=== PATIENT | male | born 1945 | race Caucasian/White ===

== ENCOUNTER 2021-11-01 20:17 | Inpatient (IN) | payer OTHER ==
[~2021-11-01] VITALS: Ht 180.3 cm; Wt 72.6 kg
[~2021-11-01 20:17] MED LIST: AMBIEN 10 MG TA10 MG PO; ATIVAN0.5 MG PO; CLONIDINE0.1 PO; COQ-10100 MG PO; COUMADIN6 MG; HYDROCODON-ACE1 EAC5 PO; IMITREX 50 MG T50 MG PO; MAGNESIUM OXID200 MG PO; MAGNESIUM400 MG PO; NORVASC 5 MG TAB5 MG PO; NORVASC5 MG PO; OXYCONTIN20 M1 PO; PRILOSEC 20 MG20 MG PO; PRILOSEC40 MG PO; PROBIOTIC1 EAC1 PO; SIMVASTATIN40 MG PO; THERA-M CAPLET1 EACH PO; TRIAMTERENE-HC1 EAC1 PO; ULTRAM ER200 MG PO; VITAMIN D31000 UNI2 PO; ZYRTEC10 M2 PO
[2021-11-01 20:23] VITALS: BP 111/53
[2021-11-01 21:13] LABS: BASOPHILS 0.2 % (0.0-2.0); HEMATOCRIT 38.6 % (42.0-52.0); LYMPHOCYTES 4.5 % (24.0-44.0); MCH 29.3 pg (26.0-34.0); MCHC 33.6 g/dL (28.0-37.0); MCV 87.2 fL (80.0-100.0); PLATELET COUNT 169 thou/uL (150-400); POLYS 85.3 % (36.0-66.0); RBC 4.43 mil/uL (4.50-6.00); RDW 13.5 % (10.5-14.5); WBC 12.9 thou/uL (4.0-11.0)
[2021-11-01 21:19] LABS: BE(vivo) 4.9 mmol/L (-2 to +3); HCO3 28.2 mmol/L (22.0-26.0); PCO2 37.2 mmHg (35.0-45.0); PO2 60.3 mmHg (80.0-100.0); pH 7.498 (7.360-7.450); sO2 93.1 % (92.0-98.0)
[2021-11-01 21:26] LABS: CALCIUM 8.4 mg/dL (8.5-10.1); CREATININE 1.2 mg/dL (0.7-1.3); POTASSIUM 3.4 mmol/L (3.5-5.1)
[2021-11-01 21:36] LABS: INR 1.02; PROTIME 11.1 Seconds (10.5-12.1)
[2021-11-01 21:37] LABS: ALBUMIN 3.1 g/dL (3.4-5.0); TOTAL BILIRUBIN 0.7 mg/dL (0.2-1.0); TOTAL PROTEIN 6.9 g/dL (6.4-8.2)
[2021-11-01 22:25] LABS: URINE BILIRUBIN NEGATIVE (Negative); URINE BLOOD TRACE (Negative); URINE CLARITY CLEAR; URINE COLOR YELLOW; URINE GLUCOSE-RANDOM* NEGATIVE (Negative); URINE KETONES TRACE (Negative); URINE LEUKOCYTES-REFLEX NEGATIVE (Negative); URINE NITRITE-REFLEX NEGATIVE (Negative); URINE PROTEIN (DIPSTICK) 1+ (Negative); URINE SPECIFIC GRAVITY >= 1.030 (1.005-1.035)
[2021-11-01 22:35] LABS: SQUAMOUS 0-3 Few /LPF (0-3)
[2021-11-01 22:36] LABS: BACTERIA-REFLEX None Seen /HPF (None Seen); CASTS None Seen /LPF (None Seen); CRYSTALS None Seen /LPF (None Seen); MUCUS 4-6 Moderate strn/LPF (None Seen); URINE RBC None Seen /HPF (NONE SEEN); URINE WBC-REFLEX 0-5 Rare /HPF (0-5)
[2021-11-01] MEDS ORDERED: MIRALAX119 GM PO (23:40)
[2021-11-01] MEDS ORDERED: MULTI VITAMIN1 EACH PO (23:41)
[2021-11-01] MEDS ORDERED: PROTONIX40 M2 PO (23:42)
[2021-11-01] MEDS ORDERED: ONDANSETRON HCL4 M2 PO (23:42)
[2021-11-01] MEDS ORDERED: CHILDREN'S ASPI81 M1 PO (23:42)
[2021-11-01] MEDS ORDERED: MOVANTIK25 MG PO (23:43)
[2021-11-01] MEDS ORDERED: CARAFATE 1 GM TA1 G1 PO (23:43)
[2021-11-01] MEDS ORDERED: NORCO 10-325 T1 EACH PO (23:44)
[2021-11-02 06:08] LABS: HEMATOCRIT 37.4 % (42.0-52.0); HEMOGLOBIN 12.2 gm/dL (14.0-18.0); MCH 29.2 pg (26.0-34.0); MCHC 32.8 g/dL (28.0-37.0); MCV 89.1 fL (80.0-100.0); RBC 4.19 mil/uL (4.50-6.00); RDW 13.6 % (10.5-14.5); WBC 11.1 thou/uL (4.0-11.0)
[2021-11-02 06:32] LABS: ALBUMIN 2.6 g/dL (3.4-5.0); CALCIUM 8.2 mg/dL (8.5-10.1); CREATININE 1.2 mg/dL (0.7-1.3); POTASSIUM 3.6 mmol/L (3.5-5.1); TOTAL BILIRUBIN 0.7 mg/dL (0.2-1.0); TOTAL PROTEIN 6.1 g/dL (6.4-8.2)
[2021-11-02 10:22] VITALS: BP 124/65
--- NOTE | 2021-11-02 18:22 | NUR ---
patient has medications in pharmacy
[2021-11-02 18:25] VITALS: BP 113/48
[2021-11-02 20:30] VITALS: BP 123/52
[2021-11-03 06:33] LABS: BASOPHILS 0.2 % (0.0-2.0)
[2021-11-03 06:34] LABS: EOSINOPHILS 0.2 % (0.0-3.0); HEMATOCRIT 35.5 % (42.0-52.0); LYMPHOCYTES 13.5 % (24.0-44.0); MCH 29.7 pg (26.0-34.0); MCHC 33.8 g/dL (28.0-37.0); MONOCYTES 7.3 % (1.0-8.0); PLATELET COUNT 155 thou/uL (150-400); POLYS 78.8 % (36.0-66.0); RBC 4.04 mil/uL (4.50-6.00); RDW 13.7 % (10.5-14.5); WBC 10.2 thou/uL (4.0-11.0)
[2021-11-03 06:56] LABS: ALBUMIN 2.4 g/dL (3.4-5.0); CALCIUM 8.3 mg/dL (8.5-10.1); CREATININE 0.9 mg/dL (0.7-1.3); PHOSPHORUS 2.3 mg/dL (2.6-4.7); POTASSIUM 3.1 mmol/L (3.5-5.1); TOTAL BILIRUBIN 0.6 mg/dL (0.2-1.0)
[2021-11-03 07:30] VITALS: BP 152/101
--- NOTE | 2021-11-03 07:38 | EKG ---
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
[2021-11-03 20:05] VITALS: BP 142/69
[2021-11-03 23:45] VITALS: BP 137/66
[2021-11-04 01:41] VITALS: BP 137/66
[2021-11-04 04:30] VITALS: BP 159/82
[2021-11-04 07:05] LABS: ALBUMIN 2.5 g/dL (3.4-5.0); CALCIUM 8.7 mg/dL (8.5-10.1); CREATININE 0.9 mg/dL (0.7-1.3); DIRECT BILIRUBIN 0.1 mg/dL (<0.1-0.2); PHOSPHORUS 3.1 mg/dL (2.5-4.9); POTASSIUM 3.3 mmol/L (3.5-5.1); TOTAL BILIRUBIN 0.5 mg/dL (0.2-1.0); TOTAL PROTEIN 6.5 g/dL (6.4-8.2)
[2021-11-04 08:00] VITALS: BP 155/82
--- NOTE | 2021-11-04 08:01 | HC ---
[facility] [address] CONSULTATION Name: MAGNOLIA SAUCEDO Room #: 354-P ADM IN M.R.#: [id number] Admission: 11/01/21 Attend Phys: Lonnie Ontiveros MD Discharge: Date of : 49 Report #: [id number] THIS REPORT FOR: cc: Juan Fuchs MD, Christopher B. MD Barry, Joseph W. MD ~ DATE OF SERVICE: 11/03/2021 INFECTIOUS DISEASE CONSULTATION ATTENDING PHYSICIAN: Dr. Ontiveros. REASON FOR EVALUATION: Febrile illness, confirmed to have COVID-19 infection, complicated by pneumonitis, respiratory failure. HISTORY OF PRESENT ILLNESS: Chart reviewed. The patient examined. This is a 75-year-old with history of hypertension, who had developed some upper respiratory tract signs and symptoms, cough, chest congestion, weakness for the last 3-4 days prior to his presentation on the 11/01. The cough is generally nonproductive. He did fall. Seemingly, had started improving; however, this worsened over the course of the hours before his presentation. He was confirmed to have a positive COVID-19 test by PCR. Influenza was negative. Initial chest x-ray showed no acute process. ABGs showed pH 7.498, pCO2 of 37.2, and pO2 of 60.3. Procalcitonin was elevated at 5.39. Urinalysis, 0-5 white cells. Liver functions were otherwise unremarkable. D-dimer 1.08. CTA chest ____ PE, showed multifocal pulmonary opacities. Blood cultures collected at the time of admission are sterile thus far. CT of the abdomen and pelvis, no acute process, focus of pyogenic changes. ALLERGIES: None known. CURRENT MEDICATIONS: Include aspirin, ____, atorvastatin, enoxaparin, hydrocodone as needed, ____, multivitamin, cholecalciferol, lactic acid, pantoprazole, Zosyn, ____, ondansetron. PAST MEDICAL HISTORY: Hypertension, hyperlipidemia, reflux with Hodges's esophagus, multiple orthopedic procedures, high cholesterol. SOCIAL HISTORY: Nonsmoker, no ethanol, no illicit drug use. FAMILY HISTORY: Noncontributory. REVIEW OF SYSTEMS: Otherwise, unremarkable. PHYSICAL EXAMINATION: GENERAL: He is alert, cooperative. He is lucid, in [id number] distress. [address] [place] [address] CONSULTATION Name: MAGNOLIA SAUCEDO Room #: 354-P [facility] IN M.R.#: [id number] Admission: 11/01/21 Attend Phys: Lonnie Ontiveros MD Discharge: Date of : 49 Report #: [id number] VITAL SIGNS: Temperature 98, pulse 57, respirations 19, blood pressure 152/101. SKIN: Warm, dry. No rashes. HEENT: Normocephalic. Extraocular muscles intact. Nasal cannula in place. NECK: Supple. LUNGS: Few scattered coarse breath sounds. HEART: Regular, borderline bradycardic. I do not appreciate a murmur. ABDOMEN: Mildly distended, somewhat firm, nontender. EXTREMITIES: No cyanosis. GENITOURINARY AND RECTAL: Deferred. LABORATORY DATA: Blood cultures sterile thus far. CT chest, as noted above. Electrolytes: Sodium 142, potassium 3.1, chloride 108, bicarbonate is 24, anion gap of 10, BUN and creatinine 15 and 0.9. LFTs unremarkable. Albumin of 2.4, total protein 6.0. CBC: White count of 10.2, H and H 12.0 and 35.5, and platelets of 155. D-dimer of 1.05. TSH of 0.8. CTA of the abdomen, noted above. Urinalysis, 0-5 white cells. ASSESSMENT AND PLAN: COVID-19 infection, complicated by pneumonitis, respiratory failure. We will continue empiric therapy. Evaluation for focal area of pyogenic infection is not really apparent, although cannot exclude bacterial pneumonitis. In addition, we will use directed therapy against coronavirus. We will add remdesivir, baricitinib and corticosteroids to his regimen. He remains somewhat tenuous. Continue to monitor expectantly. Oxygen therapy as required. <ELECTRONICALLY SIGNED> By: Pratik Smith MD 11/04/21 0801 [id number] Pratik Smith MD /nt
[2021-11-04 11:17] VITALS: BP 151/71
[2021-11-04 14:42] VITALS: BP 90/68
--- NOTE | 2021-11-04 15:58 | NUR ---
INITIAL ASSESSMENT: Case opened due to LOS. Reviewed chart and spoke with nursing and attending physician. Pt was admitted from home due to fever. Pt had positive COVID test in the ER. Pt has not received a COVID vaccination. Pt placed in Enhanced Isolation. Pt is afebrile and on 1L of O2. Pt is on IV abx, IV steroids and Remdesivir. PT/OT ordered. Per chart, pt is alert/orientated x 4. Pt lives at home with his . There are 2 steps to enter and no steps inside. Prior to admission, pt was independent with ADLs. Pt has a roller walker. Pt's PCP is Dr. Rodri Fuchs. Plan is for pt to discharge home when medically stable. SW is following to assist as needed with discharge planning.
--- NOTE | 2021-11-04 18:08 | NUR ---
assumed care of pt on arrival to unit. pt alert and oriented, pleasant, no distress. weaned to room air. up w/ stnd by assist - able to shower self. otherwise using urinal. ivf infusing per order. sinus on telemetry without events. calls out appropriately. vitals stable.
[2021-11-04 19:29] VITALS: BP 148/77
[2021-11-05 03:12] VITALS: BP 131/75
[2021-11-05 03:20] LABS: HEMATOCRIT 36.4 % (42.0-52.0); HEMOGLOBIN 12.4 gm/dL (14.0-18.0); MCH 29.8 pg (26.0-34.0); MCHC 34.2 g/dL (28.0-37.0); MCV 87.1 fL (80.0-100.0); RBC 4.18 mil/uL (4.50-6.00); RDW 13.6 % (10.5-14.5); WBC 7.8 thou/uL (4.0-11.0)
[2021-11-05 05:11] LABS: ALBUMIN 2.6 g/dL (3.4-5.0); CALCIUM 8.5 mg/dL (8.5-10.1); DIRECT BILIRUBIN 0.2 mg/dL (<0.1-0.2); PHOSPHORUS 3.1 mg/dL (2.5-4.9); POTASSIUM 3.4 mmol/L (3.5-5.1); TOTAL BILIRUBIN 0.5 mg/dL (0.2-1.0); TOTAL PROTEIN 5.7 g/dL (6.4-8.2)
--- NOTE | 2021-11-05 06:53 | NUR ---
PT MAKING PROGRESS TOWARDS GOALS. ON ROOM AIR THROUGHOUT THE NIGHT. LUNG CTA WITH FAINT CRACKLES NOTED OVER LLL. CRACKLES ABSENT ON SUBSEQUENT ASSESSMENTS. NO FEVERS NOTED.
[2021-11-05 07:39] VITALS: BP 154/89
[2021-11-05 11:39] VITALS: BP 122/81
--- NOTE | 2021-11-05 12:28 | NUR ---
VIKA reviewed chart and spoke with nursing and attending physician. Pt remains in Enhanced Isolation due to COVID. Pt is afebrile and on room air. Pt is on IV abx and IV steroids. Pt is completing course of Remdesivir. DIscharge home is anticipated in 1-2 days. VIKA spoke with pt via phone. Introduced role of SW. Prior to admission, pt was living at home with his . Pt is normally independent with ADLs and states that he has noticed muscle weakness in his legs, which has caused him to start using a walker. Pt states he is interested in a shower chair. Pt's PCP is Dr. Rodri Fuchs. No hx of HH or post-acute placement. 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 Pt states he prefers HH v. post-acute placement. SW provided HH options. Pt requested SW contact his to discuss. VIKA spoke with pt's , Eric, via phone. Introduced role of VIKA. 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 Pt's is interested in HH and possibly private duty care. Pt's requests one agency that would be able to provide both. SW discussed referral to [facility]. Pt's is agreeable. SW confirmed pt's home address. Pt's states that pt's walker is unable to fit through their bathroom doorway, and they would prefer that pt have a rollator walker, so he can sit down when needed. Pt with an increase in weakness. Pt's states the walker would need to be less than 22.5" to make it through the doorway. VIKA discussed with PT, who will measure a rollator walker. SW discussed having HH eval and make recommendations when they come see pt. Pt's verbalized understanding. Pt's to go look at shower chairs today. SW explained that insurance does not cover the shower chairs. SW faxed HH referral to [facility] for review. Notified HH liaison. They will also run pt's secondary insurance for additional coverage for private duty care. Pt's wifes states that he might have additoinal HH benefits through his secondary insurance. Plan is for pt to discharge home with HH when medically stable. VIKA is following to assist as needed with discharge planning.
[2021-11-05 14:53] VITALS: BP 102/66
[2021-11-05 19:20] VITALS: BP 96/69
[2021-11-06 03:01] VITALS: BP 134/72
[2021-11-06 03:51] LABS: ABSOLUTE NEUTROPHILS 6.8 thou/uL (1.4-8.2); BASOPHILS 0.1 % (0.0-2.0); HEMATOCRIT 36.7 % (42.0-52.0); HEMOGLOBIN 12.1 gm/dL (14.0-18.0); MCH 29.3 pg (26.0-34.0); MCV 88.8 fL (80.0-100.0); MONOCYTES 9.4 % (1.0-8.0); PLATELET COUNT 262 thou/uL (150-400); POLYS 72.5 % (36.0-66.0); RBC 4.13 mil/uL (4.50-6.00); RDW 13.5 % (10.5-14.5); WBC 9.4 thou/uL (4.0-11.0)
[2021-11-06 04:08] LABS: ALBUMIN 2.6 g/dL (3.4-5.0); CALCIUM 8.6 mg/dL (8.5-10.1); CREATININE 1.1 mg/dL (0.7-1.3); DIRECT BILIRUBIN 0.1 mg/dL (<0.1-0.2); PHOSPHORUS 3.3 mg/dL (2.5-4.9); POTASSIUM 3.5 mmol/L (3.5-5.1); TOTAL BILIRUBIN 0.4 mg/dL (0.2-1.0); TOTAL PROTEIN 6.2 g/dL (6.4-8.2)
--- NOTE | 2021-11-06 06:46 | NUR ---
PT MAKING PROGRESS TOWARDS GOALS. NOTED OCCASIONAL NONPRODUCTIVE COUGH. DENIED ANY SOA, ON ROOM AIR THROUGHOUT THE NIGHT. NOTED COARSENESS OVER LLL BUT REMAINING BAZAN WERE CLEAR.
[2021-11-06 07:42] VITALS: BP 153/91
[2021-11-06 08:21] VITALS: BP 153/91
--- NOTE | 2021-11-06 10:19 | NUR ---
DISCHARGE NOTE: VIKA received call from pt's , Eric, stating that pt has told her that he will discharge home today. Eric states that she did buy a shower chair yesterday and is ready for pt discharge home. There is a water break in the neighborhood and everything should be fixed by 1200 today. VIKA discussed [facility]'s acceptance. They will contact pt/ to discuss start of care. Pt has a it audit manager care policy. Cashiers is contacting the insurance to determine if pt has any private duty or additional coverage for services. Pt's states that she will have PT evaluate the situation at home with the narrow doorway into the bathroom. Awaiting final discharge ppwk at this time. VIKA notified [facility] liaison of pt's discharge. Contact info for HH placed in pt's discharge summary. Pt's family to provide transportation home. VIKA is following to finalize discharge plan.
[2021-11-06] MEDS ORDERED: AMOX TR-K CLV1 EAC4 PO (11:59)
[2021-11-06] MEDS ORDERED: PREDNISONE 10 M10 M1 PO (12:02)
[2021-11-06 13:51] VITALS: BP 153/91
--- NOTE | 2021-11-06 14:11 | NUR ---
Patient is alert and oriented x4. He is on enhanced precautions. Patient is on room air. Patient is CC/ Tele and has been running sinus rhythm this shift. Patient is continent of both bowel and bladder. Patient uses urinal occasionally. Patient is up x1 with a walker. Patient has an iv in his ight forearm that is saline locked and patent. Patient will continue to be monitored.
== END 2021-11-06 14:33 | disposition home health service (06) | DRG 871 ==
LOC: ER 20:17 → EROBS 22:20 → ER 22:20 → EROBS 23:04 → 3W 23:04 → EROBS 23:04 → 3W 11-04 07:58
PROVIDERS: Emergency Medicine; Hospitalist; Internal Medicine; Nurse Practitioner Family; Specialist; ADMIT Internal Medicine; ATTEND Internal Medicine
PROC: XW033E5 Introduction of Remdesivir Anti-infective into Peripheral Vein, Percutaneous Approach, New Technology Group 5 (ICD-10-PCS; principal; 2021-11-03)
DX: A41.9 Sepsis, unspecified organism (principal); U07.1 COVID-19; J12.82 Pneumonia due to coronavirus disease 2019; J96.90 Respiratory failure, unspecified, unspecified whether with hypoxia or hypercapnia; E87.3 Alkalosis; I10 Essential (primary) hypertension; E78.00 Pure hypercholesterolemia, unspecified; K21.9 Gastro-esophageal reflux disease without esophagitis; E78.5 Hyperlipidemia, unspecified; M79.18 Myalgia, other site; K22.70 Barrett's esophagus without dysplasia; D64.9 Anemia, unspecified; G89.4 Chronic pain syndrome; K59.00 Constipation, unspecified; E87.6 Hypokalemia; N40.0 Benign prostatic hyperplasia without lower urinary tract symptoms; G90.8 Other disorders of autonomic nervous system; Z79.82 Long term (current) use of aspirin; Z79.899 Other long term (current) drug therapy; Z82.3 Family history of stroke; Z83.6 Family history of other diseases of the respiratory system; Z80.3 Family history of malignant neoplasm of breast; Z80.59 Family history of malignant neoplasm of other urinary tract organ
CPT/HCPCS: 10879